=== PATIENT | female | born 1985 | race African-American/Black ===

== ENCOUNTER 2017-04-17 03:34 | Inpatient (IN) | payer OTHER ==
[~2017-04-17] VITALS: Ht 165.1 cm; Wt 90.7 kg
[~2017-04-17 03:34] MED LIST: Docusate Sodium PO; HYDROcodone-APAP 5-325 PO; IBUP-1827 PO
[2017-04-17] MEDS ORDERED: Hemorrhage Kit, Post Partum XX ONE ×2 (06:20→22:10)
[2017-04-17] MEDS ORDERED: Oxytocin 30 Units/500 mL LR 30 UNITS in IV Premix 1 EACH IV PRN ×3 (06:20→22:10)
[2017-04-17] MEDS ORDERED: Sodium Chloride LOK Flush 10 mL Syringe IVFLUSH PRN (06:20)
[2017-04-17] MEDS ORDERED: Ondansetron 2 mg/mL 2 mL Inj IVPUSH PRN (06:20)
[2017-04-17] MEDS ORDERED: Penicillin G K Inj 5,000,000 UNITS in Dextrose 5% Minibag Plus 100 ML IV ONE (06:20)
[2017-04-17] MEDS ORDERED: Carboprost 250 mCg/mL Inj IM PRN ×2 (06:20→22:10)
[2017-04-17] MEDS ORDERED: Lactated Ringer's 1,000 ML IV PRN (06:20)
[2017-04-17] MEDS ORDERED: Methylergonovine 0.2 mg/mL Inj IM PRN ×2 (06:20→22:10)
[2017-04-17] MEDS ORDERED: fentaNYL-PF 50 mCg/mL 2 mL Inj IVPUSH PRN (06:20)
[2017-04-17] MEDS ORDERED: Oxytocin 10 Unit/mL Inj IM PRN ×2 (06:20→22:10)
[2017-04-17] MEDS ORDERED: Lactated Ringer's 1,000 ML IV SCH ×3 (06:26→22:10)
[2017-04-17] MEDS ORDERED: Misoprostol 25 mCg/0.25 Tablet VAGINAL ONE ×2 (10:15→16:15)
[2017-04-17 10:37] LABS: Mean Corpuscular Hemoglobin 30.5 pg (27.0-35.0); Mean Corpuscular Volume 87.4 fL (81-100)
[2017-04-17] MEDS ORDERED: Penicillin G K Inj 3,000,000 UNITS in IV Premix 1 EACH IV SCH (12:30)
[2017-04-17] MEDS ORDERED: Lactated Ringer's 500 ML IV ONE (18:33)
--- NOTE | 2017-04-17 18:33 | PCM.HPANE ---
Patient Data Surgeon Admitting Provider:Varun Obregon MD Attending Provider:Varun Obregon MD Primary Care Physician:Varun Obregon MD Other Provider: Reason for Visit Induction INDUCTION Ht/WT & BMI Body Mass Index Allergies Coded Allergies: No Known Allergies (Unverified Allergy, Unknown, 05/21/15) Past Anesthesia History Anesthesia History: Denies:: Abnormal Airway, Anesthesia Reactions, Difficult Intubation, Fam Anesthesia Reaction, Fam Malignant Hypertherm, Malignant Hyperthermia Medications Active Scripts [Docusate Sodium] (Colace)100 MG CAPSULE No Conflict [id number] Mg PO BID #30 CAPSULE Ref 1 Prov:Varun Obregon MD 05/23/15 [Hydrocodone/Acetaminophen] ([place] 5-325)1 TABLET TABLET No Conflict Check1-2 Tablet PO Q4H PRN For Pain #30 TABLET Prov:Varun Obregon MD 05/23/15 Ibuprofen 600 Mg [id number] Mg PO Q6H PRN For Mild Pain #30 TABLET Ref 1 Prov:Varun Obregon MD 05/23/15 History History of ENT Problems?: No HEENT History: Denies:: Abnormal Airway Cataracts Difficult Intubation Dysphagia Glaucoma Hearing Problem Sinus Problem TMJ Denture Type: None Teeth Condition: Within Normal Limits Hx of Heart Problems?: No Cardiovascular History: Denies:: AICD Abdominal Aortic Aneurism Atrial Fibrillation Cardiac Surgery Chest Pain Congestive Heart Failure Coronary Artery Disease Edema Heart Murmur Hypertension Irregular Heartbeat Pacemaker Peripheral Vascular Rheumatic Fever Thrombophlebitis Valvular Heart Disease Hx of Respiratory Problem?: No Respiratory History: Denies:: Asthma COPD Chest Surgery Cough Dyspnea Emphysema Hemoptysis Oxygen Administration Pneumonia Pulmonary Embolism Tuberculosis Use of C-PAP Machine Use of Inhalers / NEBS Hx Neurologic Problems?: No Neurological History: Denies:: Alzheimer's Disease CVA Dementia Dizziness Headaches Multiple Sclerosis Parkinson's Disease Peripheral Neuropathy Seizures TIA Hx of GI Problems?: No Gastrointestinal History: Denies:: Cirrhosis Diverticulitis Gall Bladder Disease Gastroesphageal Reflux Gastrointestinal Bleeding Heartburn Hepatitis Hiatal Hernia Liver Disease Rectal Bleeding Hx of Problems?: No Genitourinary History: Denies:: HX of Hemodialysis Kidney Stones Urinary Tract Infection Female Hx: Denies:: Currently Endometriosis Pelvic Inflammatory Problems with Breasts? Hx Musculoskeletal Problems?: No Psycho Social History: Denies:: Anxiety Bipolar Disorder Hx Depression Suicide Attempt Hx Surgeries?: No Hx Alcohol Use: NoHx Substance Use: No Smoking Status: Never Smoker Stop/Bang Risk Assessment Category Category 1A: Patient has history of documented sleep apnea, and HAS NOT received any narcotic, sedative or anesthesia administration during this stay. Category 1B: Patient has history of documented sleep apnea, and HAS received any narcotic , sedative or anesthesia administration during this stay Category 2: Patient has SUSPECTED Obstructive Sleep Apnea, and HAS received any narcotic , sedative or anesthesia administration during this stay. Category 3: Patient has SUSPECTED Obstructive Sleep Apnea and HAS NOT received narcotic, sedative or anesthesia administration during this stay. Category 4: Outpatient in Procedural Areas with known sleep apnea or who screen positive for High Risk via the STOP/BANG questionnaire. Exam Exam General Appearance: Alert, Oriented X3, Cooperative, No Acute Distress HEENT/AIRWAY: MP 2 Lungs: Clear to Auscultation, Normal Air Movement Heart: Exam Unremarkable, Regular Rate/Rhythm, No Murmurs/Rubs/Gallops Meds/Labs/Diagnostics Admission Meds Current Medications Penicillin G Potassium [id number] units/Dextrose/ Water 100 ml @ 240 mls/hr ONCE ONCE IV Last administered on 04/17/17 17:17; Start 04/17/17 at 06:20; Stop at 09:10; Status DC Lactated Ringer's (Lr) 1,000 ml @ 125 mls/hr Q8H IV Last administered on 17:17; Start 04/17/17 at 06:26 Misoprostol (Cytotec) 25 mcg ONCE ONCE VAGINAL Last administered on 04/17/17 12:37; Start 04/17/17 at 10:15; Stop 04/17/17 at 10:16; Status DC Misoprostol (Cytotec) 25 mcg ONCE ONCE VAGINAL Last administered on 04/17/17 16:19; Start 04/17/17 at 16:15; Stop 04/17/17 at 16:16; Status DC Labs Test 04/17/17 10:23 White Blood Count 4.7th/mm3 (3.8-10.1) Red Blood Count 4.59mil/mm3 (3.90-5.20) Hemoglobin 14.0g/dL (12.0-15.6) Hematocrit 40.1% (35.0-46.0) Mean Corpuscular Volume 87.4fL (81-100) Mean Corpuscular Hemoglobin 30.5pg (27.0-35.0) Mean Corpuscular Hemoglobin Concent 34.9% (32.0-37.0) Red Cell Distribution Width 15.0% (12.3-15.4) Platelet Count 192bil/L (150-400) Plan Impression Patient chart reviewed, patient interviewed and anesthestic plan with risks, benefits, and alternatives discussed, and informed consent obtained. ASA Physical Status: ASA1 Normal Healthy Anesthetic Plan: Epidural Bene/Risks/Altern/Consents: Yes HP Complete Prior to Induction: Yes Floyd Carter MD Apr 17, 2017 18:32
[2017-04-17] MEDS ORDERED: Atropine 1 mg/10 mL (Code) Syringe IVPUSH PRN (18:35)
[2017-04-17] MEDS ORDERED: EPHEDrine Sulfate 50 mg/mL Inj IVPUSH PRN (18:35)
[2017-04-17] MEDS ORDERED: fentaNYL 2 mCg/mL-Bupiv 0.125% 100 ML EPIDURAL SCH (18:35)
[2017-04-17] MEDS ORDERED: BUPIVACAINE MPF 0.25% ONE (18:45)
[2017-04-17] MEDS ORDERED: Influenza (Adult) Vaccine 0.5 mL Syringe IM ONE (22:10)
[2017-04-17] MEDS ORDERED: LANOlin HPA 7 Gm Ointment TOPICAL PRN (22:10)
[2017-04-17] MEDS ORDERED: Witch Hazel-Glycerin Pads TOPICAL PRN (22:10)
[2017-04-17] MEDS ORDERED: Measles-Mumps-Rubella Vaccine 0.5 mL Inj SUBQ ONE (22:10)
[2017-04-17] MEDS ORDERED: Benzocaine (Dermoplast) 20% 60 Gm Spray TOPICAL PRN (22:10)
[2017-04-17] MEDS ORDERED: TdaP Vaccine 0.5 mL Inj IM ONE (22:10)
[2017-04-17] MEDS ORDERED: Lidocaine 2% 6mL Topical Jelly ONE (23:09)
--- NOTE | 2017-04-18 03:13 | PCM.ANEP1 ---
Post Anesthesia PACU Phase 1 Assessment Vital Signs 102/68 P87 99% SaO2 Anesthetic Administered: Epidural Level of Alertness: Awake, talking HERRERA's with Equal Strength: No Pain: No Pain Scale Score: 0 Nausea or Vomiting: No CV Function & Hydration Stable: No Airway Device: Oxygen Delivery: Room Air Lungs: Clear to Auscultation, Normal Air Movement Dermatome Level: T10 (Umbilicus) PACU Phase 2 Assessment Complications: No Follow up Care: N/A Patient Instructions Provided: Yes Floyd Carter MD Apr 18, 2017 03:13
[2017-04-18 07:40] LABS: Mean Corpuscular Hemoglobin 30.3 pg (27.0-35.0); Mean Corpuscular Volume 87.4 fL (81-100)
[2017-04-18] MEDS: HYDROcodone-APAP 5-325 mg Tablet PO PRN ×3 (10:25→19:23)
--- NOTE | 2017-04-18 18:58 | PCM.DIOB ---
Obstetrical Disch Instruction Dates of Hospitalization Date of Hospital Admission Apr 17, 2017 at 08:43 Providers Admitting Physician: Varun Obregon MD Primary Care Physician: Varun Obregon MD Attending Physician: Varun Obregon MD Discharge Diagnosis Problems: (1) Onset Date: 05/21/2015 Status: Acute ICD Code: Z33.1 (2) Gestational diabetes Status: Acute ICD Code: O24.419 Diet Discharge Diet: Diabetic (22[address]AL ADA Diet) Activity Discharge Activity-General: Pelvic Rest for 6 weeks Dressing and Incisional Care Hygiene: May shower, Perineal care, Sitz bath, Dermoplast spray, Witch Kaitlin pads, Ice Follow Up Plan Follow-up appointment: Weeks (Follow up in 6 weeks for checkup. Call Office on Friday at Noon to make appointment.) Call your provider for: Fever or Chills, Shortness of breath, Heavy vaginal bleeding, Red painful breasts Varun Obregon MD Apr 18, 2017 18:58
[2017-04-18] MEDS ORDERED: HYDR-4003 PO (19:01)
[2017-04-18] MEDS ORDERED: IBUP-1827 PO (19:01)
[2017-04-18] MEDS ORDERED: DOCU-41 PO (19:01)
[2017-04-18 20:00] VITALS: BP 123/71; PULSE 72; RESP 20
--- NOTE | 2017-04-20 00:13 | PROG NOTE ---
[address] [address] PROGRESS NOTE PATIENT: SOCORRO ENCARNACION : 1985 MR#: [id number] ADMIT: 04/17/2017 JOB ID: [id number] [facility] NOTE: DATE: 04/17/2017 TIME: 2200 hours. SUBJECTIVE: The patient was admitted to [facility] on the morning of April 17, 2017, for labor induction in the setting of term , and recently diagnosed gestational diabetes for which she has been under diet management. She was not able to see a staff development educator within the period of time between diagnosis and planned delivery, although definitely being careful with diet. Labor induction was planned in light of the gestational diabetes as well as to deliver before any blood pressure issues develop as noted significantly during last labor. Cytotec dose was first provided, followed by spontaneous rupture of membranes and Pitocin therapy, and with epidural provided for pain management. Labor progressed and heart tracing was okay, epidural was continued for pain management, Pitocin augmentation was continued, and penicillin G was provided for prophylaxis in the setting of group B strep test positivity. Ultimately, the patient reached complete cervical dilatation and then effectively pushed down the head until . Head then delivered, followed by the shoulders, body and extremities. The baby was noted to be active, crying and vigorous on the delivery field. This was in spite of there having been noticed meconium at one point following spontaneous rupture of membranes, although without subsequently identified meconium during the labor process. At delivery, there was noted a little bit of meconium mixed with clear amniotic fluid, yet again baby was active, crying and vigorous, and cloth washer was agreeable to baby going to the mother. After one minute of delay, umbilical cord was clamped and cut, and cord blood was obtained for routine studies. Placenta with membranes were spontaneously expelled, intact. Uterus was massaged and intravenous Pitocin infusion provided. Uterus contracted well, and blood loss was acceptable. Betadine solution was used to cleanse the vulvovaginal region and the only laceration was noted to be a moderately sized midline 2nd-degree perineal laceration, easily repaired with 2-0 chromic suture in deep and then more superficial/subcuticular running manner. Hemostasis was noted to be complete and there was no hematoma formation. Instrument, needle, and sponge counts were all found to be correct, bleeding was scant, and it certainly is anticipated that mother and baby will do very well during the timeframe. Some blood sugars will be checked for the patient, and is also recommended for baby. MTDD
--- NOTE | 2017-04-20 17:40 | HP ---
[address] [address] HISTORY AND PHYSICAL PATIENT: SOCORRO ENCARNACION : 1985 MR#: [id number] ADMIT: 04/17/2017 JOB ID: [id number] [facility] NOTE: DATE: 04/17/2017 This patient is a 32-year-old, G2, P1, AB0, woman followed prenatally in [facility] before coming to my office towards the end of her in late March with plan to deliver in the [place]. has been complicated by greater than 50 pounds of weight gain, finding of positive group B strep test recently, finding of gestational diabetes recently with only briefly possible efforts at diet control due to proximity to due date, etc. The patient carries history of significant -induced hypertension during 1st labor, 3rd degree laceration experienced with births, inadequate epidural, and possible seizure at about three weeks following delivery although subsequently not felt to be the case per general physician. On no antiseizure medication. Another possibility was considered to be anxiety/panic attack-related event. In summary then, the patient is at 39 weeks of gestation on admission, having due date of April 24, 2017, with recently diagnosed gestational diabetes which is an indication for delivery at term, especially as we do not have sufficient data to clarify diabetic control as only very recently diagnosed. PHYSICAL EXAMINATION: On admission, recent height, weight and blood pressure in the office 64-1/2 inches, 203 pounds, blood pressure 110/72, respectively. Neck: No thyromegaly. Lungs are clear to auscultation and percussion. Heart: Regular in rate and rhythm. Abdomen: Fundal height 40 cm. Positive heartbeat. Vertex presentation. Pelvic examination: See admission nurse's findings. DIAGNOSTIC DATA: See admission lab report. IMPRESSION: 1. Thirty-nine weeks . 2. Prior 41+ weeks vaginal delivery, inadequate epidural, 7 pound 9 ounce baby, -induced hypertension in labor, subsequently at three weeks , perhaps vasovagal, originally thought to be seizure although subsequently discounted. 3. Recently diagnosed gestational diabetes, using diet in the past 1+ week since diagnosis. 4. Positive group B strep test, for antibiotic prophylaxis in labor. 5. Increased weight gain in (greater than 50 pounds). 6. Tdap recommended in late . 7. Rh positive status. 8. Rubella immune. 9. Late transfer of care as the patient moved to the [place] from [facility] at 36 weeks of gestation for ongoing care and delivery in the [place]. 10. History of panic attack. 11. No known drug allergies. 12. with human papillomavirus and herpes history, patient without history of either, yet did use antiviral prophylaxis in the later stages of the 3rd trimester to help prevent herpes occurrence. 13. Family history of diabetes (father, type 2), hypertension, and twins. PLAN: The patient was admitted to [facility] at 39 weeks of gestation for labor induction in the setting of gestational diabetes diagnosis, also with history of significant -induced hypertension, with prior labor and delivery. See record for details.
--- NOTE | 2017-04-22 07:26 | DIS ---
[address] [address] DISCHARGE SUMMARY PATIENT: SOCORRO ENCARNACION : 1985 MR#: [id number] ADMIT: 04/17/2017 JOB ID: [id number] DIS: 04/18/2017 DATE: 04/18/2017 DISCHARGE DIAGNOSES: 1. Term , delivered. 2. Gestational diabetes. 3. History of -induced hypertension with last . PROCEDURES PERFORMED DURING HOSPITALIZATION: 1. Labor induction. 2. Vaginal delivery. 3. Repair of perineal laceration. 4. Epidural anesthesia. HOSPITAL COURSE: Patient admitted to [facility] on April 17, 2017, for labor induction in the setting of gestational diabetes. Ultimately, procedures were undertaken as described above. During the timeframe, patient did well, with stable vitals, afebrile, with reasonable bleeding and pain management, ambulating and voiding, and fluid removed without leg pain or shortness of breath and handling baby well. Some nursing/feeding issues were going on, thus resulting in ticket speculator's recommendation for keeping baby a little longer, although patient was good with boarder status from the maternal side. DISCHARGE PROGRAM: Patient will call p.r.n., yet otherwise she will follow up at six weeks for checkup. She will observe pelvic rest for six weeks. She will continue to stay on a diabetic diet for the first six weeks , note blood sugars normal in the hospital during labor as well as . She will use hydrocodone, ibuprofen, and Colace at home, prescriptions written. She will also use vitamin at home while nursing. The patient has supply.
== END 2017-04-18 21:37 | disposition home or self-care (01) | DRG 775 ==
LOC: FBC 08:43
PROVIDERS: ADMIT Obstetrics & Gynecology; ATTEND Obstetrics & Gynecology
PROC: 10E0XZZ Delivery of Products of Conception, External Approach (ICD-10-PCS; principal; 2017-04-17)
PROC: 0KQM0ZZ Repair Perineum Muscle, Open Approach (ICD-10-PCS; 2017-04-17)
PROC: 3E0P7GC Introduction of Other Therapeutic Substance into Female Reproductive, Via Natural or Artificial Opening (ICD-10-PCS; 2017-04-17)
DX: O70.1 Second degree perineal laceration during delivery (principal); Z37.0 Single live birth; O24.410 Gestational diabetes mellitus in pregnancy, diet controlled; O36.0130 Maternal care for anti-D [Rh] antibodies, third trimester, not applicable or unspecified; O26.03 Excessive weight gain in pregnancy, third trimester; Z3A.39 39 weeks gestation of pregnancy; O77.0 Labor and delivery complicated by meconium in amniotic fluid; O99.824 Streptococcus B carrier state complicating childbirth